=== PATIENT | male | born 1940 | race Caucasian/White ===

== ENCOUNTER 2019-01-30 15:20 | Inpatient (IN) | payer MEDICARE ==
[~2019-01-30] VITALS: Ht 175.3 cm; Wt 86.1 kg
--- NOTE | 2019-01-30 15:42 | NUR ---
PT AMBULATORY WITH STEADY GAIT TO ROOM FROM RADIOLOGY AT THIS TIME
[2019-01-30] MEDS ORDERED: AMIODARONE 50 MG/ML, 3ML ONE (15:59)
[2019-01-30] MEDS ORDERED: AMIODARONE 150 MG in DEXTROSE 5% 100 ML IV ONE (16:00)
[2019-01-30] MEDS ORDERED: ASPIRIN 81 MG TABLET CHEW PO ONE (16:00)
[2019-01-30] MEDS ORDERED: SODIUM CHLORIDE FLUSH 10ML SYR IVF ONE (16:00)
[2019-01-30] MEDS ORDERED: AMIODARONE 900 MG in DEXTROSE 5% 482 ML IV PRN (16:00)
[2019-01-30 16:07] LABS: MEAN CORPUSCULAR HEMOGLOBIN 34.6 pg (27.5-34.5); MEAN CORPUSCULAR HGB CONC 34.2 g/dL (33.2-36.2); MEAN CORPUSCULAR VOLUME 101.1 fL (81-97); MEAN PLATELET VOLUME 8.5 fL (7.4-10.4); PLATELET COUNT 271 x10^3/uL (130-400); RED BLOOD COUNT 4.97 x10^6/uL (4.38-5.82); RED CELL DISTRIBUTION WIDTH 13.1 % (9.4-14.8)
--- NOTE | 2019-01-30 16:08 | NUR ---
PT HAS EPISODES OF VTACH. ER MD NOTIFIED. CRASH CART INTO ROOM. PACERPADS APPLIED.
[2019-01-30 16:13] LABS: ALANINE AMINOTRANSFERASE 40 U/L (12-78); ALBUMIN 3.8 g/dL (3.4-5.0); ANION GAP 10 mmol/L (5-15); CALCIUM 8.9 mg/dL (8.5-10.1); CHLORIDE 105 mmol/L (98-107)
--- NOTE | 2019-01-30 16:14 | NUR ---
DIRECTOR LOSS PREVENTION AT BEDSIDE
[2019-01-30 16:17] LABS: ALKALINE PHOSPHATASE 89 U/L (45-117); BILIRUBIN,TOTAL 0.9 mg/dL (0.2-1.0); TOTAL PROTEIN 7.5 g/dL (6.4-8.2); TROPONIN I < 0.015 ng/mL (0.000-0.045)
[2019-01-30] MEDS ORDERED: LOVA40TA2 PO (16:22)
[2019-01-30] MEDS ORDERED: BENA20TA54 PO (16:22)
[2019-01-30] MEDS ORDERED: ASPI-515 PO (16:22)
[2019-01-30] MEDS ORDERED: MULT-658 PO (16:22)
[2019-01-30] MEDS ORDERED: GLUC1TAB55 PO (16:22)
[2019-01-30 16:25] LABS: MD YES
[2019-01-30 16:29] LABS: <PLATELET ESTIMATE> ADEQUATE; <PLT MORPHOLOGY> NORMAL PLT MORPH; <RBC MORPHOLOGY> NORMAL; BAND#(MANUAL) 0.16 x10^3/uL; BANDS%(MANUAL) 1 % (0-7); LYMPH#(MANUAL) 4.81 x10^3/uL (1-3.4); LYMPHS% (MANUAL) 31 % (22-44); MONOS#(MANUAL) 0.47 x10^3/uL (0.3-2.7); MONOS% (MANUAL) 3 % (2-9); REACTIVE LYMPHS # (MANUAL) 5.43 x10^3/uL (0-0); REACTIVE LYMPHS % (MANUAL) 35 % (0-0); SEG#(MANUAL) 4.65 x10^3/uL (1.8-6.8); SEGS% (MANUAL) 30 % (42-75)
[2019-01-30] MEDS ORDERED: FILTER 0.22 MICRON FOR AMIODARONE IV PRN (16:30)
--- NOTE | 2019-01-30 16:38 | NUR ---
PIV ESTABLISHED X 2. PT TOLERATED WITH NO COMPLICATIONS.
[2019-01-30] MEDS ORDERED: OXYcodone IR 5MG TABLET PO PRN (17:00)
[2019-01-30] MEDS ORDERED: morphine SULFATE 10 MG/ML, 1ML IVPush PRN (17:00)
[2019-01-30] MEDS ORDERED: ACETAMINOPHEN 325 MG TABLET PO PRN (17:00)
[2019-01-30] MEDS ORDERED: ONDANSETRON 2MG/ML, 2ML IVPush PRN (17:00)
--- NOTE | 2019-01-30 17:10 | NUR ---
REPORT GIVEN TO HENNA ON TELE
--- NOTE | 2019-01-30 17:23 | NUR ---
PT RESTING ON GURNEY. NO ACUTE DISTRESS NOTED. FAMILY BEDSIDE. PT STATES "I HAVEN'T HAD ANOTHER DIZZY SPELL." NO NEEDS REQUESTED AT THIS TIME.
[2019-01-30 17:52] VITALS: BP 180/92
[2019-01-30] MEDS: D5%-0.45NACL+KCL 20MEQ 1,000 ML IV SCH (18:41)
[2019-01-30 19:05] VITALS: BP 158/94
[2019-01-30 22:51] LABS: TROPONIN I 0.018 ng/mL (0.000-0.045)
[2019-01-31 00:08] VITALS: BP 145/87
[2019-01-31] MEDS: D5%-0.45NACL+KCL 20MEQ 1,000 ML IV SCH (03:48)
[2019-01-31] MEDS ORDERED: SODIUM CHLORIDE 0.9% 1,000 ML IV SCH ×3 (06:46→13:43)
[2019-01-31 07:07] VITALS: BP 151/84
[2019-01-31 08:54] LABS: ANION GAP 7 mmol/L (5-15); CALCIUM 8.7 mg/dL (8.5-10.1); CHLORIDE 107 mmol/L (98-107); CREATININE 0.96 mg/dL (0.7-1.3)
[2019-01-31 09:34] LABS: MEAN CORPUSCULAR HGB CONC 34.7 g/dL (33.2-36.2); MEAN CORPUSCULAR VOLUME 100.9 fL (81-97); MEAN PLATELET VOLUME 8.9 fL (7.4-10.4); PLATELET COUNT 258 x10^3/uL (130-400); RED BLOOD COUNT 4.74 x10^6/uL (4.38-5.82)
[2019-01-31 10:24] LABS: BASOPHILS # (AUTO) 0.06 x10^3/uL (0-0.1); BASOPHILS % (AUTO) 1 % (0-1); EOSINOPHILS # (AUTO) 0.19 x10^3/uL (0-0.4); EOSINOPHILS % (AUTO) 2 % (1-7); LYMPHOCYTES # (AUTO) 4.72 x10^3/uL (1-3.4); LYMPHOCYTES % (AUTO) 46 % (22-44); MD SCAN; MONOCYTES # (AUTO) 0.79 x10^3/uL (0.2-0.8); MONOCYTES % (AUTO) 8 % (2-9); NEUTROPHILS # (AUTO) 4.56 x10^3/uL (1.8-6.8); NEUTROPHILS % (AUTO) 44 % (42-75)
[2019-01-31] MEDS ORDERED: VERAPAMIL 2.5 MG/ML, 2ML ONE (10:35)
[2019-01-31] MEDS ORDERED: MIDAZOLAM 1 MG/ML, 5ML ONE (10:35)
[2019-01-31] MEDS ORDERED: TICAGRELOR 90 MG TABLET ONE (10:35)
[2019-01-31] MEDS ORDERED: FENTANYL PF 100 MCG/2ML ONE (10:35)
[2019-01-31] MEDS ORDERED: HEPARIN 1,000 UNITS/ML, 10ML ONE (10:36)
[2019-01-31] MEDS ORDERED: LIDOCAINE 2%, 20ML ONE (10:36)
[2019-01-31] MEDS ORDERED: NITROGLYCERIN 5 MG/ML, 10ML ONE (10:36)
[2019-01-31] MEDS ORDERED: BIVALIRUDIN 250 MG ONE (10:36)
[2019-01-31 12:44] LABS: THYROID STIMULATING HORMONE 1.43 mIU/L (0.358-3.740)
[2019-01-31 14:08] VITALS: BP 138/86
[2019-01-31] MEDS: BENAZEPRIL 20 MG TABLET PO SCH (15:29)
[2019-01-31] MEDS: POTASSIUM CHLORIDE 10 MEQ TABLET.ER PO SCH (15:29)
[2019-01-31] MEDS: CARVEDILOL 3.125 MG TABLET PO SCH (16:53)
[2019-01-31 19:21] VITALS: BP 130/74
[2019-01-31] MEDS: ATORVASTATIN 40 MG TABLET PO SCH (20:36)
[2019-01-31] MEDS ORDERED: AMIODARONE 200 MG TABLET PO SCH (21:00)
[2019-02-01 01:24] VITALS: BP 119/74
[2019-02-01 05:45] LABS: CHLORIDE 110 mmol/L (98-107)
[2019-02-01] MEDS: CARVEDILOL 3.125 MG TABLET PO SCH (06:07)
[2019-02-01 06:23] LABS: ANION GAP 9 mmol/L (5-15); CALCIUM 8.6 mg/dL (8.5-10.1); CREATININE 0.88 mg/dL (0.7-1.3)
[2019-02-01 08:08] VITALS: BP 133/81
[2019-02-01] MEDS: MULTIVITAMIN 1 TABLET PO SCH (08:55)
[2019-02-01] MEDS: FOLIC ACID 1 MG TABLET PO SCH (08:55)
[2019-02-01] MEDS: POTASSIUM CHLORIDE 10 MEQ TABLET.ER PO SCH ×2 (08:55→17:18)
[2019-02-01] MEDS: BENAZEPRIL 20 MG TABLET PO SCH (08:55)
[2019-02-01] MEDS: THIAMINE 100MG TABLET PO SCH (08:55)
[2019-02-01] MEDS: METOPROLOL TARTRATE 25 MG TABLET PO SCH ×2 (11:52→21:36)
[2019-02-01 11:53] VITALS: BP 131/87
[2019-02-01 14:12] VITALS: BP 148/85
[2019-02-01 19:37] VITALS: BP 123/78
[2019-02-01] MEDS: ATORVASTATIN 40 MG TABLET PO SCH (20:35)
[2019-02-02 04:00] VITALS: BP 118/69
[2019-02-02] MEDS: METOPROLOL TARTRATE 25 MG TABLET PO SCH (06:23)
[2019-02-02 08:23] VITALS: BP 135/84
[2019-02-02] MEDS: FOLIC ACID 1 MG TABLET PO SCH (09:04)
[2019-02-02] MEDS: POTASSIUM CHLORIDE 10 MEQ TABLET.ER PO SCH (09:04)
[2019-02-02] MEDS: THIAMINE 100MG TABLET PO SCH (09:04)
[2019-02-02] MEDS: BENAZEPRIL 20 MG TABLET PO SCH (09:04)
[2019-02-02] MEDS: MULTIVITAMIN 1 TABLET PO SCH (09:04)
[2019-02-02] MEDS ORDERED: METO25TA35 PO (10:23)
[2019-02-02] MEDS ORDERED: POTA20TA6 PO (10:23)
== END 2019-02-02 11:58 | disposition home or self-care (01) | DRG 287 ==
LOC: ED 16:19 → EDIP 16:20 → ED 16:34 → 5SO 17:53 → DCLOUNGE 02-02 11:40
PROVIDERS: ADMIT Internal Medicine; ATTEND Internal Medicine
PROC: 4A023N7 Measurement of Cardiac Sampling and Pressure, Left Heart, Percutaneous Approach (ICD-10-PCS; principal; 2019-01-31)
PROC: B2111ZZ Fluoroscopy of Multiple Coronary Arteries using Low Osmolar Contrast (ICD-10-PCS; 2019-01-31)
PROC: B2151ZZ Fluoroscopy of Left Heart using Low Osmolar Contrast (ICD-10-PCS; 2019-01-31)
DX: I47.2 Ventricular tachycardia (principal); D75.89 Other specified diseases of blood and blood-forming organs; D72.829 Elevated white blood cell count, unspecified; E78.5 Hyperlipidemia, unspecified; E87.6 Hypokalemia; I34.0 Nonrheumatic mitral (valve) insufficiency; I10 Essential (primary) hypertension; I49.3 Ventricular premature depolarization; Z80.1 Family history of malignant neoplasm of trachea, bronchus and lung; Z85.828 Personal history of other malignant neoplasm of skin; Z87.891 Personal history of nicotine dependence
CPT/HCPCS: 36415; 71046; 80048; 80053; 82607; 83735; 84443; 84484; 85025; 93005; 93306; 93458; 96365; 96375; 99156; C1769; C1894; G0378; J0583; J1644; J2250; J3010; J0282; J3480; J7060; Q9967

== ENCOUNTER 2019-02-08 16:24 | Inpatient (IN) | payer MEDICARE ==
[~2019-02-08] VITALS: Ht 175.3 cm; Wt 86.2 kg
[~2019-02-08 16:24] MED LIST: ASPI-515 PO; BENA20TA54 PO; GLUC1TAB55 PO; LOVA40TA2 PO; METO25TA35 PO; MULT-658 PO; POTA20TA6 PO
[2019-02-08 17:00] LABS: MEAN CORPUSCULAR HEMOGLOBIN 34.5 pg (27.5-34.5); MEAN CORPUSCULAR HGB CONC 33.7 g/dL (33.2-36.2); MEAN CORPUSCULAR VOLUME 102.4 fL (81-97); MEAN PLATELET VOLUME 8.8 fL (7.4-10.4); PLATELET COUNT 307 x10^3/uL (130-400); RED BLOOD COUNT 4.95 x10^6/uL (4.38-5.82)
[2019-02-08 17:11] LABS: ALBUMIN 3.8 g/dL (3.4-5.0); ANION GAP 7 mmol/L (5-15); CALCIUM 9.5 mg/dL (8.5-10.1); CHLORIDE 107 mmol/L (98-107); CREATININE 1.13 mg/dL (0.7-1.3)
[2019-02-08 17:14] LABS: TROPONIN I < 0.015 ng/mL (0.000-0.045)
[2019-02-08 17:23] LABS: BASOPHILS # (AUTO) 0.08 x10^3/uL (0-0.1); BASOPHILS % (AUTO) 1 % (0-1); EOSINOPHILS % (AUTO) 2 % (1-7); LYMPHOCYTES % (AUTO) 54 % (22-44); MD SCAN; MONOCYTES # (AUTO) 1.09 x10^3/uL (0.2-0.8); MONOCYTES % (AUTO) 8 % (2-9); NEUTROPHILS # (AUTO) 5.17 x10^3/uL (1.8-6.8); NEUTROPHILS % (AUTO) 36 % (42-75)
--- NOTE | 2019-02-08 17:48 | NUR ---
ELECTRICAL ENGINEER MEP: PT TO ROOM FROM LOBBY, UPRIGHT STEADY GAIT
--- NOTE | 2019-02-08 18:00 | NUR ---
DIZZY "SPELLS" TODAY. PT SEEN HERE FOR SAME LAST WEEK, DX WITH VTACH AND REPORTEDLY CONTROLLED W/ AMIODARONE- WEANED TO METOPROLOL PO WHICH HE WAS SENT HOME W/ WELL HOLTER MONITOR. HE RECIVED A CALL AT HOME YESTERDAY D/T BRADYCARDIA (REMOTE HOLTER MONITORING)-TOLD TO STOP METOPROLOL. AT THIS TIME PATIENT DENIES CP/SOB, VSS ON CARDIAC. PIV PLACED NO ASA TODAY
--- NOTE | 2019-02-08 18:51 | NUR ---
PATIENT W/ REPORTED "DIZZY SPELL" WHILE CREDIT RISK ASSOCIATE IN THE ROOM, 8 BEAT RUN OF VTACH NOTED ON MONITOR. SYMPTOMS RESOLVED IMMEDIATELY. 77,[id number]/[phone] DIRECTLY AFTER INCIDENT TELE STRIP PRINTED/PROVIDER MADE AWARE/PADS PLACED PATIENT UPDATED ON POC
--- NOTE | 2019-02-08 19:17 | NUR ---
PATIENT REMAINS STABLE ON CONTAINER SHOP WELDER/PADS IN PLACE REPORTS ANOTHER PERIOD OF DIZZYYNESS AROUND 1905 PRAOVIDER TO BEDSIDE TO UPDATE ON POC WILL CONTINUE TO CLOSELY MONITOR
[2019-02-08] MEDS ORDERED: ASPIRIN 81 MG TABLET CHEW ONE (19:20)
--- NOTE | 2019-02-08 19:21 | NUR ---
SPOKE TO PROVIDER ABOUT NEED FOR ASA, WELL PROVIDER PREFERENCE W/ MAGNESIUM FOR ARRYTHMIA CONTROL. VERBAL ORDER RECEIVED FOR 162MG OF ASPIRIN
[2019-02-08] MEDS ORDERED: ASPIRIN 81 MG TABLET CHEW PO ONE (19:30)
--- NOTE | 2019-02-08 20:40 | NUR ---
NO REPORTED DIZZINESS SINCE LAST EVAL VITALS REMAIN STABLE ON MIGRATORY FARM HAND CALL [place] IN HAND AT BEDSIDE UPDATED ON POC
--- NOTE | 2019-02-08 20:43 | NUR ---
15 BEAT RUN NOTED WITH RESOLUTION OF SXS IMMEDIATELY PADS REMAIN IN PLACE
[2019-02-08 21:45] VITALS: BP 167/85
[2019-02-08 22:45] VITALS: BP 167/85
[2019-02-09] MEDS ORDERED: DOCUSATE 100 MG CAPSULE PO PRN
[2019-02-09] MEDS: HEPARIN 5,000 UNITS/ML, 1ML SQ SCH ×4 (00:45→21:23)
[2019-02-09 01:07] LABS: MEAN CORPUSCULAR HEMOGLOBIN 34.7 pg (27.5-34.5); MEAN CORPUSCULAR HGB CONC 33.7 g/dL (33.2-36.2); MEAN CORPUSCULAR VOLUME 102.9 fL (81-97); MEAN PLATELET VOLUME 8.9 fL (7.4-10.4); PLATELET COUNT 265 x10^3/uL (130-400); RED CELL DISTRIBUTION WIDTH 13.1 % (9.4-14.8)
[2019-02-09 01:13] LABS: ALANINE AMINOTRANSFERASE 32 U/L (12-78); ALBUMIN 3.3 g/dL (3.4-5.0); ANION GAP 8 mmol/L (5-15); CHLORIDE 110 mmol/L (98-107); CREATININE 0.93 mg/dL (0.7-1.3)
[2019-02-09 01:18] LABS: ALKALINE PHOSPHATASE 68 U/L (45-117); BILIRUBIN,TOTAL 0.7 mg/dL (0.2-1.0); TOTAL PROTEIN 6.4 g/dL (6.4-8.2); TROPONIN I < 0.015 ng/mL (0.000-0.045)
[2019-02-09 01:20] LABS: TROPONIN I 0.015 ng/mL (0.000-0.045)
[2019-02-09 01:43] LABS: BASOPHILS # (AUTO) 0.06 x10^3/uL (0-0.1); BASOPHILS % (AUTO) 0 % (0-1); EOSINOPHILS # (AUTO) 0.41 x10^3/uL (0-0.4); EOSINOPHILS % (AUTO) 3 % (1-7); LYMPHOCYTES # (AUTO) 7.69 x10^3/uL (1-3.4); LYMPHOCYTES % (AUTO) 57 % (22-44); MD SCAN; MONOCYTES # (AUTO) 1.12 x10^3/uL (0.2-0.8); MONOCYTES % (AUTO) 8 % (2-9); NEUTROPHILS # (AUTO) 4.21 x10^3/uL (1.8-6.8); NEUTROPHILS % (AUTO) 31 % (42-75)
[2019-02-09 02:00] VITALS: BP 129/79
[2019-02-09 08:11] VITALS: BP 145/88
[2019-02-09] MEDS ORDERED: POTASSIUM CHLORIDE 20 MEQ TAB.ER.PRT PO ONE ×2 (08:30)
[2019-02-09] MEDS: ASPIRIN 81 MG TABLET EC PO SCH (09:10)
[2019-02-09] MEDS: MULTIVITAMIN 1 TABLET PO SCH (09:10)
[2019-02-09] MEDS: POTASSIUM CHLORIDE 20 MEQ TAB.ER.PRT PO SCH (09:10)
[2019-02-09] MEDS: GLUCOSAMINE PO SCH (09:11)
[2019-02-09] MEDS: BENAZEPRIL 20 MG TABLET PO SCH (09:11)
[2019-02-09] MEDS: D3 PO SCH (09:11)
[2019-02-09] MEDS: BOSWELLIA SERRA T PO SCH (09:11)
[2019-02-09 13:59] VITALS: BP 141/86
[2019-02-09 20:29] VITALS: BP 139/80
[2019-02-09] MEDS: LOVASTATIN 40 MG TABLET PO SCH (21:07)
[2019-02-10 01:48] VITALS: BP 121/76
[2019-02-10] MEDS ORDERED: SODIUM CHLORIDE 0.9% 1,000 ML IV SCH (07:35)
[2019-02-10] MEDS: SODIUM CHLORIDE 0.9% 1,000 ML IV SCH ×3 (07:35→23:37)
[2019-02-10] MEDS: HEPARIN 5,000 UNITS/ML, 1ML SQ SCH (08:00)
[2019-02-10] MEDS ORDERED: CEFAZOLIN PMX 1GM/50ML 50 ML IVPB ONE (08:00)
[2019-02-10 08:45] VITALS: BP 150/64
[2019-02-10 08:56] LABS: CHLORIDE 113 mmol/L (98-107)
[2019-02-10 09:00] LABS: ALBUMIN 3.4 g/dL (3.4-5.0); ANION GAP 9 mmol/L (5-15); CREATININE 0.99 mg/dL (0.7-1.3)
[2019-02-10 09:15] LABS: MEAN CORPUSCULAR HEMOGLOBIN 34.7 pg (27.5-34.5); MEAN CORPUSCULAR HGB CONC 33.4 g/dL (33.2-36.2); MEAN PLATELET VOLUME 9.4 fL (7.4-10.4); PLATELET COUNT 289 x10^3/uL (130-400); RED BLOOD COUNT 4.74 x10^6/uL (4.38-5.82); RED CELL DISTRIBUTION WIDTH 13.1 % (9.4-14.8)
[2019-02-10 10:13] LABS: BASOPHILS # (AUTO) 0.05 x10^3/uL (0-0.1); BASOPHILS % (AUTO) 0 % (0-1); EOSINOPHILS # (AUTO) 0.35 x10^3/uL (0-0.4); EOSINOPHILS % (AUTO) 3 % (1-7); LYMPHOCYTES # (AUTO) 5.65 x10^3/uL (1-3.4); LYMPHOCYTES % (AUTO) 46 % (22-44); MD SCAN; MONOCYTES # (AUTO) 0.93 x10^3/uL (0.2-0.8); MONOCYTES % (AUTO) 8 % (2-9); NEUTROPHILS # (AUTO) 5.21 x10^3/uL (1.8-6.8); NEUTROPHILS % (AUTO) 43 % (42-75)
[2019-02-10 13:07] VITALS: BP 149/89
[2019-02-10] MEDS: POTASSIUM CHLORIDE 20 MEQ TAB.ER.PRT PO SCH (15:00)
[2019-02-10] MEDS: BOSWELLIA SERRA T PO SCH (15:00)
[2019-02-10] MEDS: ASPIRIN 81 MG TABLET EC PO SCH (15:00)
[2019-02-10] MEDS: GLUCOSAMINE PO SCH (15:00)
[2019-02-10] MEDS ORDERED: POTASSIUM CHLORIDE 20 MEQ TAB.ER.PRT PO ONE (15:00)
[2019-02-10] MEDS: D3 PO SCH (15:00)
[2019-02-10] MEDS ORDERED: ISOPROTERENOL 0.2MG/ML, 5ML ONE (15:02)
[2019-02-10] MEDS ORDERED: LIDOCAINE 1%, 20ML ONE ×3 (15:02→16:48)
[2019-02-10] MEDS ORDERED: MIDAZOLAM 1 MG/ML, 5ML ONE (15:02)
[2019-02-10] MEDS ORDERED: FENTANYL PF 250 MCG/5ML ONE (15:02)
[2019-02-10] MEDS ORDERED: CEFAZOLIN 1,000 MG ONE (16:17)
[2019-02-10] MEDS ORDERED: HEPARIN 5,000 UNITS/ML, 1ML SQ SCH (17:41)
[2019-02-10] MEDS: METOPROLOL TARTRATE 50 MG TABLET PO SCH (17:57)
[2019-02-10] MEDS ORDERED: [UNRECOGNIZED DRUG - REMARK] MC PRN (18:00)
[2019-02-10] MEDS ORDERED: ACETAMINOPHEN 325 MG TABLET PO PRN (18:00)
[2019-02-10] MEDS: BENAZEPRIL 20 MG TABLET PO SCH (18:00)
[2019-02-10] MEDS: MULTIVITAMIN 1 TABLET PO SCH (18:04)
[2019-02-10 19:24] VITALS: BP 118/73
[2019-02-10] MEDS: LOVASTATIN 40 MG TABLET PO SCH (19:57)
[2019-02-10] MEDS: ACETAMINOPHEN 325 MG TABLET PO PRN (19:57)
[2019-02-10] MEDS: SODIUM CHLORIDE FLUSH 10ML SYR IVF SCH (19:58)
[2019-02-11] MEDS: CEFAZOLIN PMX 1GM/50ML 50 ML IVPB SCH ×2 (00:21→10:29)
[2019-02-11 00:35] VITALS: BP 137/85
[2019-02-11] MEDS: ACETAMINOPHEN 325 MG TABLET PO PRN ×2 (00:42→10:30)
[2019-02-11 06:22] VITALS: BP 153/98
[2019-02-11] MEDS: METOPROLOL TARTRATE 50 MG TABLET PO SCH (06:23)
[2019-02-11] MEDS: SODIUM CHLORIDE 0.9% 1,000 ML IV SCH (07:35)
[2019-02-11 07:48] VITALS: BP 155/95
[2019-02-11 09:40] LABS: BASOPHILS # (AUTO) 0.06 x10^3/uL (0-0.1); BASOPHILS % (AUTO) 0 % (0-1); EOSINOPHILS # (AUTO) 0.32 x10^3/uL (0-0.4); EOSINOPHILS % (AUTO) 2 % (1-7); LYMPHOCYTES # (AUTO) 4.72 x10^3/uL (1-3.4); LYMPHOCYTES % (AUTO) 33 % (22-44); MD NO; MEAN CORPUSCULAR HEMOGLOBIN 33.5 pg (27.5-34.5); MEAN CORPUSCULAR HGB CONC 32.3 g/dL (33.2-36.2); MEAN CORPUSCULAR VOLUME 103.7 fL (81-97); MEAN PLATELET VOLUME 9.1 fL (7.4-10.4); MONOCYTES # (AUTO) 0.79 x10^3/uL (0.2-0.8); MONOCYTES % (AUTO) 6 % (2-9); NEUTROPHILS # (AUTO) 8.33 x10^3/uL (1.8-6.8); NEUTROPHILS % (AUTO) 59 % (42-75); PLATELET COUNT 255 x10^3/uL (130-400); RED CELL DISTRIBUTION WIDTH 12.8 % (9.4-14.8)
[2019-02-11 09:48] LABS: ALBUMIN 3.2 g/dL (3.4-5.0); ANION GAP 6 mmol/L (5-15); CALCIUM 8.9 mg/dL (8.5-10.1); CHLORIDE 115 mmol/L (98-107); CREATININE 0.84 mg/dL (0.7-1.3)
[2019-02-11] MEDS: MULTIVITAMIN 1 TABLET PO SCH (10:29)
[2019-02-11] MEDS: ASPIRIN 81 MG TABLET EC PO SCH (10:30)
[2019-02-11] MEDS: BENAZEPRIL 20 MG TABLET PO SCH (10:30)
[2019-02-11] MEDS: POTASSIUM CHLORIDE 20 MEQ TAB.ER.PRT PO SCH (10:30)
[2019-02-11] MEDS: SODIUM CHLORIDE FLUSH 10ML SYR IVF SCH (10:31)
[2019-02-11] MEDS: BOSWELLIA SERRA T PO SCH (10:31)
[2019-02-11] MEDS: D3 PO SCH (10:31)
[2019-02-11] MEDS: GLUCOSAMINE PO SCH (10:31)
[2019-02-11] MEDS ORDERED: METO50TA82 PO (12:56)
[2019-02-11 13:34] VITALS: BP 150/89
[2019-02-11] MEDS ORDERED: HEPARIN 5,000 UNITS/ML, 1ML SQ SCH (17:30)
== END 2019-02-11 15:41 | disposition home or self-care (01) | DRG 243 ==
LOC: ED 19:23 → EDIP 19:45 → 5SO 21:25
PROVIDERS: ADMIT Internal Medicine; ATTEND Internal Medicine
PROC: 4A0234Z Measurement of Cardiac Electrical Activity, Percutaneous Approach (ICD-10-PCS; principal; 2019-02-10)
PROC: 0JH606Z Insertion of Pacemaker, Dual Chamber into Chest Subcutaneous Tissue and Fascia, Open Approach (ICD-10-PCS; 2019-02-10)
PROC: 02HK3JZ Insertion of Pacemaker Lead into Right Ventricle, Percutaneous Approach (ICD-10-PCS; 2019-02-10)
PROC: 02H63JZ Insertion of Pacemaker Lead into Right Atrium, Percutaneous Approach (ICD-10-PCS; 2019-02-10)
PROC: 4A02XM4 Measurement of Cardiac Total Activity, External Approach (ICD-10-PCS; 2019-02-10)
PROC: 4A023FZ Measurement of Cardiac Rhythm, Percutaneous Approach (ICD-10-PCS; 2019-02-10)
DX: I49.5 Sick sinus syndrome (principal); I47.2 Ventricular tachycardia; I10 Essential (primary) hypertension; E78.5 Hyperlipidemia, unspecified; E87.6 Hypokalemia; D72.829 Elevated white blood cell count, unspecified; F10.20 Alcohol dependence, uncomplicated; F12.90 Cannabis use, unspecified, uncomplicated; I48.91 Unspecified atrial fibrillation; T44.7X5A Adverse effect of beta-adrenoreceptor antagonists, initial encounter; Y92.89 Other specified places as the place of occurrence of the external cause; Z79.82 Long term (current) use of aspirin; Z79.899 Other long term (current) drug therapy; Z87.891 Personal history of nicotine dependence; Z80.1 Family history of malignant neoplasm of trachea, bronchus and lung; Z80.3 Family history of malignant neoplasm of breast; Z85.820 Personal history of malignant melanoma of skin; Z86.79 Personal history of other diseases of the circulatory system
CPT/HCPCS: 33208; 36415; 71045; 80048; 80053; 80069; 82040; 83735; 84100; 84443; 84484; 85025; 93005; 93620; 93621; 93623; 99156; 99285; C1779; C1785; C1892; C1894; G0378; J0690; J1644; J2250; J3010; C1730; J7030

== ENCOUNTER 2019-02-24 11:21 | Outpatient (CLI) | payer MEDICARE ==
[~2019-02-24 11:21] MED LIST changes: +METO50TA82 PO
[2019-02-24 12:54] LABS: ANION GAP 8 mmol/L (5-15); CALCIUM 9.4 mg/dL (8.5-10.1); CHLORIDE 106 mmol/L (98-107); CREATININE 0.94 mg/dL (0.7-1.3)
== END 2019-02-24 23:59 | disposition home or self-care (01) ==
LOC: CFH 11:21
PROVIDERS: ATTEND Internal Medicine Cardiovascular Disease
DX: I47.2 Ventricular tachycardia (principal); I10 Essential (primary) hypertension; E78.5 Hyperlipidemia, unspecified
CPT/HCPCS: 36415; 80048; 84443

== ENCOUNTER → 2021-05-01 | Outpatient (CLI) | payer MEDICARE ==
[~2021-05-01] MED LIST changes: -ASPI-515 PO; +ASPI-963 PO
== END | disposition home or self-care (01) ==
LOC: CVU 09:41
PROVIDERS: ATTEND Student in an Organized Health Care Education/Training Program
DX: I34.0 Nonrheumatic mitral (valve) insufficiency (principal); I48.0 Paroxysmal atrial fibrillation; I11.9 Hypertensive heart disease without heart failure; I25.10 Atherosclerotic heart disease of native coronary artery without angina pectoris; Z82.49 Family history of ischemic heart disease and other diseases of the circulatory system
CPT/HCPCS: 93306; 93356; 93978